=== PATIENT | female | born 1930 | race Caucasian/White ===

== ENCOUNTER 2018-05-14 15:54 | Inpatient (IN) | payer MEDICARE, OTHER ==
[2018-05-14] MEDS ORDERED: ZOLPIDEM 5 MG TAB PO (20:00)
[2018-05-14] MEDS ORDERED: ONDANSETRON 4 MG INJ IV (20:00)
[2018-05-14] MEDS ORDERED: NACL 0.9% 3 ML SYG IV (20:00)
[2018-05-14] MEDS: GABAPENTIN 300 MG CAP PO (21:03)
[2018-05-14] MEDS: SOD CHLORIDE 0.9% 1,000 ML IV (21:03)
[2018-05-14] MEDS: ATORVASTATIN 10 MG TAB PO (21:04)
[2018-05-14] MEDS: traMADol 50 MG TAB PO (21:04)
[2018-05-14] MEDS ORDERED: LEVETIRACETAM 500 MG (PMX) 100 ML IVPB (22:30)
[2018-05-15 06:34] LABS: ADD MAN DIFF? NO
[2018-05-15 06:36] LABS: BASOPHILS % 0.6 % (0.0-2.0); EOSINOPHILS # 0.1 10^3/ul (0.0-0.5); HEMATOCRIT 35.3 % (37.0-47.0); HEMOGLOBIN 10.8 g/dl (12.0-16.0); LYMPHOCYTES # 1.7 10^3/ul (0.8-2.9); MEAN CORPUSCULAR HEMOGLOBIN 21.7 pg (29.0-33.0); MEAN CORPUSCULAR HGB CONC 30.6 g/dl (32.0-37.0); MEAN PLATELET VOLUME 9.5 fl (7.4-10.4); MONOCYTE # 0.4 10^3/ul (0.3-0.9); MONOCYTES % 6.6 % (0.0-11.0); NEUTROPHIL # 3.9 10^3/ul (1.6-7.5); NEUTROPHILS % 63.2 % (39.0-77.0); PLATELET COUNT 137 10^3/UL (140-415); RED BLOOD COUNT 4.97 10^6/ul (4.20-5.40); RED CELL DISTRIBUTION WIDTH 15.2 % (11.5-14.5)
[2018-05-15 06:36] LABS: WHITE BLOOD COUNT 6.2 10^3/ul (4.8-10.8)
[2018-05-15 07:06] LABS: ANION GAP 5 (5-13); BLOOD UREA NITROGEN 16 mg/dl (7-20); CALCIUM 8.8 mg/dl (8.4-10.2); CARBON DIOXIDE 28 mmol/L (21-31); CHLORIDE 107 mmol/L (97-110); CREATININE 0.82 mg/dl (0.44-1.00); GLUCOSE 102 mg/dl (70-220); MAGNESIUM 2.2 mg/dl (1.7-2.5); PHOSPHORUS 3.1 mg/dl (2.5-4.9); POTASSIUM 4.2 mmol/L (3.5-5.1); SODIUM 140 mmol/L (135-144)
[2018-05-15 07:13] LABS: HEMOGLOBIN A1C 5.5 % (0-5.9)
[2018-05-15 07:23] LABS: T3 UPTAKE 37.1 % (23.5-40.5)
[2018-05-15] MEDS: METOPROLOL (XL) 25 MG TAB PO (09:00)
[2018-05-15] MEDS: MAGNESIUM CHLORIDE (SR) 64 MG TAB PO (09:04)
[2018-05-15] MEDS: GABAPENTIN 300 MG CAP PO ×2 (09:05→20:42)
[2018-05-15] MEDS: PANTOPRAZOLE (EC) 40 MG TAB PO (09:05)
[2018-05-15] MEDS: CHOLECALCIFEROL 400 UNITS TAB PO (09:05)
[2018-05-15] MEDS: traMADol 50 MG TAB PO ×2 (09:06→20:43)
[2018-05-15 11:03] LABS: IRON 59 ug/dl (35-150)
[2018-05-15 11:05] LABS: CHOL/HDL RATIO 4.6 RATIO; CREATINE KINASE 24 IU/L (23-200); HDL CHOLESTEROL 23 mg/dl (33-92); LDL CHOLESTEROL,CALCULATED 68 mg/dl; TRIGLYCERIDES 81 mg/dl (0-149)
[2018-05-15 11:05] LABS: CHOLESTEROL 107 mg/dl (100-200)
[2018-05-15 11:12] LABS: % IRON SATURATION 20 % SAT (22-52); TOTAL IRON BINDING CAPACITY 293 ug/dl (241-421)
[2018-05-15 11:15] LABS: B-TYPE NATRIURETIC PEPTIDE 372 PG/ML (0-450); CK-MB 0.24 ng/ml (0.0-2.4); TROPONIN-I < 0.012 ng/ml (0.000-0.120)
[2018-05-15 11:39] LABS: FERRITIN 35.7 ng/ml (11.1-264.0)
[2018-05-15] MEDS: MECLIZINE 12.5 MG TAB PO (17:00)
[2018-05-15] MEDS: LORAZEPAM 2 MG INJ IV (17:39)
[2018-05-15] MEDS: ATORVASTATIN 10 MG TAB PO (20:42)
[2018-05-16 06:10] LABS: ADD MAN DIFF? NO
[2018-05-16 06:31] LABS: WHITE BLOOD COUNT 7.2 10^3/ul (4.8-10.8)
[2018-05-16 06:31] LABS: BASOPHIL # 0.1 10^3/ul (0.0-0.1); BASOPHILS % 0.8 % (0.0-2.0); EOSINOPHILS # 0.2 10^3/ul (0.0-0.5); EOSINOPHILS % 2.9 % (0.0-7.0); HEMATOCRIT 36.3 % (37.0-47.0); HEMOGLOBIN 11.2 g/dl (12.0-16.0); LYMPHOCYTES # 2.7 10^3/ul (0.8-2.9); LYMPHOCYTES % 37.3 % (15.0-51.0); MEAN CORPUSCULAR HEMOGLOBIN 21.5 pg (29.0-33.0); MEAN CORPUSCULAR HGB CONC 30.9 g/dl (32.0-37.0); MEAN CORPUSCULAR VOLUME 69.8 fl (82.0-101.0); MEAN PLATELET VOLUME 9.6 fl (7.4-10.4); MONOCYTE # 0.5 10^3/ul (0.3-0.9); MONOCYTES % 6.7 % (0.0-11.0); NEUTROPHIL # 3.7 10^3/ul (1.6-7.5); NEUTROPHILS % 51.7 % (39.0-77.0); PLATELET COUNT 145 10^3/UL (140-415); RED CELL DISTRIBUTION WIDTH 14.8 % (11.5-14.5)
[2018-05-16 06:51] LABS: ALANINE AMINOTRANSFERASE 19 IU/L (13-69); ALBUMIN 3.7 g/dl (3.3-4.9); ALBUMIN/GLOBULIN RATIO 1.54; ALKALINE PHOSPHATASE 46 IU/L (42-121); ANION GAP 5 (5-13); ASPARTATE AMINO TRANSFERASE 15 IU/L (15-46); BILIRUBIN,INDIRECT 0.2 mg/dl (0-1.1); BILIRUBIN,TOTAL 0.2 mg/dl (0.2-1.3); BLOOD UREA NITROGEN 13 mg/dl (7-20); CALCIUM 8.9 mg/dl (8.4-10.2); CARBON DIOXIDE 29 mmol/L (21-31); CHLORIDE 106 mmol/L (97-110); CREATININE 0.76 mg/dl (0.44-1.00); GLUCOSE 103 mg/dl (70-220); SODIUM 140 mmol/L (135-144); TOTAL PROTEIN 6.1 g/dl (6.1-8.1)
[2018-05-16 06:57] LABS: PHOSPHORUS 3.1 mg/dl (2.5-4.9)
[2018-05-16 06:57] LABS: MAGNESIUM 2.1 mg/dl (1.7-2.5)
[2018-05-16] MEDS: CHOLECALCIFEROL 400 UNITS TAB PO (08:30)
[2018-05-16] MEDS: GABAPENTIN 300 MG CAP PO ×2 (08:30→21:11)
[2018-05-16] MEDS: MAGNESIUM CHLORIDE (SR) 64 MG TAB PO (08:30)
[2018-05-16] MEDS: traMADol 50 MG TAB PO ×2 (08:31→21:11)
[2018-05-16] MEDS: PANTOPRAZOLE (EC) 40 MG TAB PO (08:31)
[2018-05-16] MEDS: METOPROLOL (XL) 25 MG TAB PO (08:32)
[2018-05-16] MEDS: MECLIZINE 12.5 MG TAB PO (09:20)
[2018-05-16] MEDS: ALPRAZOLAM 0.25 MG TAB PO ×2 (16:01→21:10)
[2018-05-16] MEDS: ATORVASTATIN 10 MG TAB PO (21:11)
[2018-05-17] MEDS: ALPRAZOLAM 0.25 MG TAB PO ×3 (06:00→20:58)
[2018-05-17] MEDS: GABAPENTIN 300 MG CAP PO ×2 (08:27→20:54)
[2018-05-17] MEDS: CHOLECALCIFEROL 400 UNITS TAB PO (08:27)
[2018-05-17] MEDS: METOPROLOL (XL) 25 MG TAB PO (08:27)
[2018-05-17] MEDS: PANTOPRAZOLE (EC) 40 MG TAB PO (08:27)
[2018-05-17] MEDS: MAGNESIUM CHLORIDE (SR) 64 MG TAB PO (08:28)
[2018-05-17] MEDS: traMADol 50 MG TAB PO ×2 (08:28→20:58)
[2018-05-17] MEDS: MECLIZINE 12.5 MG TAB PO ×2 (13:52→20:54)
[2018-05-17] MEDS: ATORVASTATIN 10 MG TAB PO (20:54)
[2018-05-18] MEDS: ALPRAZOLAM 0.25 MG TAB PO ×3 (05:56→20:42)
[2018-05-18] MEDS: MAGNESIUM CHLORIDE (SR) 64 MG TAB PO (08:53)
[2018-05-18] MEDS: MECLIZINE 12.5 MG TAB PO ×2 (08:53→12:48)
[2018-05-18] MEDS: PANTOPRAZOLE (EC) 40 MG TAB PO (08:54)
[2018-05-18] MEDS: GABAPENTIN 300 MG CAP PO ×2 (08:54→20:41)
[2018-05-18] MEDS: CHOLECALCIFEROL 400 UNITS TAB PO (08:54)
[2018-05-18] MEDS: METOPROLOL (XL) 25 MG TAB PO (08:54)
[2018-05-18] MEDS: traMADol 50 MG TAB PO ×2 (08:55→20:42)
[2018-05-18] MEDS: DOCUSATE SODIUM 100 MG CAP PO ×2 (09:06→20:42)
[2018-05-18] MEDS: MECLIZINE 25 MG TAB PO (20:41)
[2018-05-18] MEDS: ATORVASTATIN 10 MG TAB PO (20:42)
[2018-05-19] MEDS: ALPRAZOLAM 0.25 MG TAB PO ×2 (05:49→14:17)
[2018-05-19] MEDS: METOPROLOL (XL) 25 MG TAB PO (09:00)
[2018-05-19] MEDS: MAGNESIUM CHLORIDE (SR) 64 MG TAB PO (09:26)
[2018-05-19] MEDS: CHOLECALCIFEROL 400 UNITS TAB PO (09:27)
[2018-05-19] MEDS: MECLIZINE 25 MG TAB PO ×3 (09:28→20:24)
[2018-05-19] MEDS: PANTOPRAZOLE (EC) 40 MG TAB PO (09:28)
[2018-05-19] MEDS: GABAPENTIN 300 MG CAP PO ×2 (09:28→20:24)
[2018-05-19] MEDS: DOCUSATE SODIUM 100 MG CAP PO ×2 (09:28→20:24)
[2018-05-19] MEDS: traMADol 50 MG TAB PO ×2 (09:30→20:25)
[2018-05-19] MEDS: BISACODYL 10 MG SUPP PR (15:22)
[2018-05-19] MEDS: ATORVASTATIN 10 MG TAB PO (20:24)
[2018-05-19 23:37] LABS: ADD UMIC YES; UR ASCORBIC ACID NEGATIVE (NEGATIVE); UR BILIRUBIN (Dip) NEGATIVE (NEGATIVE); UR BLOOD (Dip) 1+ mg/dL (NEGATIVE); UR CLARITY CLEAR (CLEAR); UR COLOR YELLOW (YELLOW); UR GLUCOSE (Dip) NEGATIVE (NEGATIVE); UR KETONES (Dip) NEGATIVE (NEGATIVE); UR LEUKOCYTE ESTERASE (Dip) NEGATIVE Leu/ul (NEGATIVE); UR NITRITE (Dip) NEGATIVE (NEGATIVE); UR RBC 2 /HPF (0-5); UR SPECIFIC GRAVITY (Dip) 1.009 (1.003-1.030); UR TOTAL PROTEIN (Dip) NEGATIVE (NEGATIVE); UR UROBILINOGEN (Dip) NEGATIVE (NEGATIVE); UR WBC 0 /HPF (0-5)
[2018-05-20 06:15] LABS: ADD MAN DIFF? NO
[2018-05-20 06:22] LABS: WHITE BLOOD COUNT 6.6 10^3/ul (4.8-10.8)
[2018-05-20 06:22] LABS: BASOPHILS % 0.6 % (0.0-2.0); EOSINOPHILS # 0.2 10^3/ul (0.0-0.5); EOSINOPHILS % 2.6 % (0.0-7.0); HEMATOCRIT 40.3 % (37.0-47.0); HEMOGLOBIN 12.6 g/dl (12.0-16.0); LYMPHOCYTES # 1.9 10^3/ul (0.8-2.9); LYMPHOCYTES % 29.1 % (15.0-51.0); MEAN CORPUSCULAR HEMOGLOBIN 21.7 pg (29.0-33.0); MEAN CORPUSCULAR HGB CONC 31.3 g/dl (32.0-37.0); MEAN CORPUSCULAR VOLUME 69.4 fl (82.0-101.0); MEAN PLATELET VOLUME 9.5 fl (7.4-10.4); MONOCYTE # 0.6 10^3/ul (0.3-0.9); MONOCYTES % 9.7 % (0.0-11.0); NEUTROPHIL # 3.8 10^3/ul (1.6-7.5); NEUTROPHILS % 57.1 % (39.0-77.0); PLATELET COUNT 149 10^3/UL (140-415); RED BLOOD COUNT 5.81 10^6/ul (4.20-5.40); RED CELL DISTRIBUTION WIDTH 14.6 % (11.5-14.5)
[2018-05-20 06:37] LABS: ANION GAP 12 (5-13); BLOOD UREA NITROGEN 18 mg/dl (7-20); CALCIUM 9.3 mg/dl (8.4-10.2); CARBON DIOXIDE 31 mmol/L (21-31); CHLORIDE 98 mmol/L (97-110); CREATININE 0.76 mg/dl (0.44-1.00); GLUCOSE 101 mg/dl (70-220); MAGNESIUM 2.2 mg/dl (1.7-2.5); POTASSIUM 4.2 mmol/L (3.5-5.1); SODIUM 141 mmol/L (135-144)
[2018-05-20] MEDS: ENOXAPARIN 40 MG/0.4 ML SYG SC (09:00)
[2018-05-20] MEDS: morphine 4 MG/ML VIAL IV (10:00)
[2018-05-20] MEDS: PANTOPRAZOLE (EC) 40 MG TAB PO (10:40)
[2018-05-20] MEDS: CHOLECALCIFEROL 400 UNITS TAB PO (10:40)
[2018-05-20] MEDS: GABAPENTIN 300 MG CAP PO ×3 (10:40→20:22)
[2018-05-20] MEDS: DOCUSATE SODIUM 100 MG CAP PO ×2 (10:41→20:22)
[2018-05-20] MEDS: MECLIZINE 25 MG TAB PO ×3 (10:41→20:22)
[2018-05-20] MEDS: predniSONE 20 MG TAB PO (10:41)
[2018-05-20] MEDS: HYDROCODONE/APAP (5/325) TAB PO (10:41)
[2018-05-20] MEDS: MAGNESIUM CHLORIDE (SR) 64 MG TAB PO (10:41)
[2018-05-20] MEDS: METOPROLOL (XL) 25 MG TAB PO (10:42)
[2018-05-20] MEDS: traMADol 50 MG TAB PO ×2 (10:42→20:22)
[2018-05-20] MEDS: SOD CHLORIDE 0.9% 100 ML ×2 (10:47→11:24)
[2018-05-20] MEDS: IOHEXOL 100 ML ×2 (10:47→11:24)
[2018-05-20] MEDS ORDERED: morphine LIQ (10 MG/5 ML) CUP PO (15:30)
[2018-05-20] MEDS: ATORVASTATIN 10 MG TAB PO (20:21)
[2018-05-20] MEDS ORDERED: GABAPENTIN 100 MG CAP PO (21:00)
[2018-05-21 06:50] LABS: ADD MAN DIFF? NO
[2018-05-21 06:54] LABS: WHITE BLOOD COUNT 8.4 10^3/ul (4.8-10.8)
[2018-05-21 06:54] LABS: BASOPHILS % 0.4 % (0.0-2.0); EOSINOPHILS # 0.1 10^3/ul (0.0-0.5); EOSINOPHILS % 1.1 % (0.0-7.0); HEMATOCRIT 39.2 % (37.0-47.0); LYMPHOCYTES # 1.8 10^3/ul (0.8-2.9); MEAN CORPUSCULAR HEMOGLOBIN 21.4 pg (29.0-33.0); MEAN CORPUSCULAR HGB CONC 30.6 g/dl (32.0-37.0); MEAN PLATELET VOLUME 9.7 fl (7.4-10.4); MONOCYTE # 0.8 10^3/ul (0.3-0.9); MONOCYTES % 9.6 % (0.0-11.0); NEUTROPHIL # 5.6 10^3/ul (1.6-7.5); NEUTROPHILS % 66.3 % (39.0-77.0); PLATELET COUNT 158 10^3/UL (140-415); RED CELL DISTRIBUTION WIDTH 14.2 % (11.5-14.5)
[2018-05-21 07:15] LABS: ANION GAP 11 (5-13); BLOOD UREA NITROGEN 19 mg/dl (7-20); CALCIUM 9.3 mg/dl (8.4-10.2); CARBON DIOXIDE 32 mmol/L (21-31); CHLORIDE 99 mmol/L (97-110); CREATININE 0.74 mg/dl (0.44-1.00); GLUCOSE 103 mg/dl (70-220); MAGNESIUM 2.2 mg/dl (1.7-2.5); POTASSIUM 4.2 mmol/L (3.5-5.1); SODIUM 142 mmol/L (135-144)
[2018-05-21] MEDS: CHOLECALCIFEROL 400 UNITS TAB PO (08:56)
[2018-05-21] MEDS: GABAPENTIN 300 MG CAP PO ×3 (08:56→20:08)
[2018-05-21] MEDS: MAGNESIUM CHLORIDE (SR) 64 MG TAB PO (08:57)
[2018-05-21] MEDS: PANTOPRAZOLE (EC) 40 MG TAB PO (08:57)
[2018-05-21] MEDS: MECLIZINE 25 MG TAB PO ×3 (08:57→20:08)
[2018-05-21] MEDS: DOCUSATE SODIUM 100 MG CAP PO ×2 (08:57→20:08)
[2018-05-21] MEDS: predniSONE 20 MG TAB PO (08:57)
[2018-05-21] MEDS: traMADol 50 MG TAB PO ×2 (08:57→20:08)
[2018-05-21] MEDS: METOPROLOL (XL) 25 MG TAB PO (08:58)
[2018-05-21] MEDS: ENOXAPARIN 40 MG/0.4 ML SYG SC (09:04)
[2018-05-21] MEDS: BISACODYL 10 MG SUPP PR (12:47)
[2018-05-21] MEDS: ACETAMINOPHEN 325 MG TAB PO (12:47)
[2018-05-21] MEDS: ATORVASTATIN 10 MG TAB PO (20:08)
[2018-05-21] MEDS: HYDROCODONE/APAP (5/325) TAB PO (20:08)
[2018-05-22] MEDS: ENOXAPARIN 40 MG/0.4 ML SYG SC (09:25)
[2018-05-22] MEDS: MAGNESIUM CHLORIDE (SR) 64 MG TAB PO (09:26)
[2018-05-22] MEDS: METOPROLOL (XL) 25 MG TAB PO (09:26)
[2018-05-22] MEDS: GABAPENTIN 300 MG CAP PO ×3 (09:26→20:58)
[2018-05-22] MEDS: MECLIZINE 25 MG TAB PO ×3 (09:26→20:58)
[2018-05-22] MEDS: traMADol 50 MG TAB PO ×2 (09:26→20:58)
[2018-05-22] MEDS: CHOLECALCIFEROL 400 UNITS TAB PO (09:26)
[2018-05-22] MEDS: PANTOPRAZOLE (EC) 40 MG TAB PO (09:26)
[2018-05-22] MEDS: DOCUSATE SODIUM 100 MG CAP PO ×2 (09:26→20:58)
[2018-05-22] MEDS: predniSONE 20 MG TAB PO (09:26)
[2018-05-22] MEDS: ATORVASTATIN 10 MG TAB PO (20:57)
[2018-05-23] MEDS: PANTOPRAZOLE (EC) 40 MG TAB PO (08:57)
[2018-05-23] MEDS: MAGNESIUM CHLORIDE (SR) 64 MG TAB PO (08:58)
[2018-05-23] MEDS: GABAPENTIN 300 MG CAP PO ×3 (08:58→20:09)
[2018-05-23] MEDS: DOCUSATE SODIUM 100 MG CAP PO ×2 (08:58→20:10)
[2018-05-23] MEDS: METOPROLOL (XL) 25 MG TAB PO (08:58)
[2018-05-23] MEDS: traMADol 50 MG TAB PO ×2 (08:58→20:13)
[2018-05-23] MEDS: predniSONE 20 MG TAB PO (08:59)
[2018-05-23] MEDS: ENOXAPARIN 40 MG/0.4 ML SYG SC (09:01)
[2018-05-23] MEDS: MECLIZINE 25 MG TAB PO ×3 (10:03→20:10)
[2018-05-23] MEDS: CHOLECALCIFEROL 400 UNITS TAB PO (10:03)
[2018-05-23] MEDS: ATORVASTATIN 10 MG TAB PO (20:10)
[2018-05-24] MEDS: ENOXAPARIN 40 MG/0.4 ML SYG SC (09:18)
[2018-05-24] MEDS: MECLIZINE 25 MG TAB PO ×2 (09:19→13:32)
[2018-05-24] MEDS: DOCUSATE SODIUM 100 MG CAP PO (09:19)
[2018-05-24] MEDS: METOPROLOL (XL) 25 MG TAB PO (09:19)
[2018-05-24] MEDS: MAGNESIUM CHLORIDE (SR) 64 MG TAB PO (09:19)
[2018-05-24] MEDS: PANTOPRAZOLE (EC) 40 MG TAB PO (09:19)
[2018-05-24] MEDS: GABAPENTIN 300 MG CAP PO ×2 (09:19→13:32)
[2018-05-24] MEDS: traMADol 50 MG TAB PO (09:20)
[2018-05-24] MEDS: CHOLECALCIFEROL 400 UNITS TAB PO (09:20)
[2018-05-24] MEDS: predniSONE 20 MG TAB PO (09:20)
== END 2018-05-24 19:50 | disposition home health service (06) | DRG 55 ==
LOC: TEL 15:54 → MS1 05-22 21:20
DX: D33.3 Benign neoplasm of cranial nerves (principal); I10 Essential (primary) hypertension; E78.5 Hyperlipidemia, unspecified; D50.9 Iron deficiency anemia, unspecified; F03.90 Unspecified dementia, unspecified severity, without behavioral disturbance, psychotic disturbance, mood disturbance, and anxiety; M47.812 Spondylosis without myelopathy or radiculopathy, cervical region; K21.9 Gastro-esophageal reflux disease without esophagitis
CPT/HCPCS: 70450; 70496; 70551; 70552; 72141; 80048; 80053; 80061; 81001; 82550; 82553; 82728; 82962; 83036; 83540; 83735; 83880; 84100; 84436; 84479; 84484; 85025; 90686; 93005; 93306; 93880; 97110; 97116; 97162; 97530